=== PATIENT | female | born 1995 | race African-American/Black ===

== ENCOUNTER 2021-01-20 12:22 | Inpatient (IN) ==
[2021-01-20 14:12] LABS: ABS Basophils 0.1 10^3/ul (0-0.2); ABS Lymphocytes 2.4 10^3/ul (1.0-4.8); ABS Monocytes 0.8 10^3/ul (0-0.8); ABS Neutrophils 6.1 10^3/ul (1.5-7.7); Eosinophil % 0.5 %; Hematocrit 36 % (35-47); Hemoglobin 11.6 g/dL (12.0-16.0); Lymphocyte % 25.2 %; Mean Corpuscular HGB Conc 33 g/dL (31-36); Mean Corpuscular Hemoglobin 27 pg (27-31); Mean Corpuscular Volume 82 fL (80-97); Mean Platelet Volume 7.1 fL (7.4-10.4); Nucleated Red Blood Cells % 0.1; Platelet Count 522 10^3/uL (150-450); Red Blood Count 4.37 10^6 /uL (3.70-4.87); Red Cell Distribution Width 17 % (10-15); White Blood Count 9.4 10^3/uL (3.5-10.8)
[2021-01-20 14:26] LABS: Urine Benzodiazepine Screen None Detected (None Detect); Urine Cannabinoids Screen None Detected (None Detect); Urine Opiates Screen None Detected (None Detect)
[2021-01-20 14:30] LABS: Urine Appearance Cloudy; Urine Bilirubin Negative (Negative); Urine Blood 1+ (Negative); Urine Color Yellow; Urine Glucose Negative (Negative); Urine Ketones Negative (Negative); Urine Nitrite Negative (Negative); Urine Protein Negative (Negative); Urine Specific Gravity 1.024 (1.002-1.030); Urine Urobilinogen Negative (Negative)
[2021-01-20 14:40] LABS: ALT 10 U/L (7-52); AST 15 U/L (13-39); Albumin 4.1 g/dL (3.2-5.2); Albumin/Globulin Ratio 0.9 (1-3); Alkaline Phosphatase 83 U/L (35-149); Anion Gap 8 mmol/L (2-11); Blood Urea Nitrogen 10 mg/dL (6-24); CO2 Carbon Dioxide 23 mmol/L (22-32); Calcium 9.5 mg/dL (8.6-10.3); Chloride 104 mmol/L (101-111); Globulin 4.7 g/dL (2-4); Glucose 79 mg/dL (70-100); Potassium 3.6 mmol/L (3.5-5.0); Sodium 135 mmol/L (135-145); Total Protein 8.8 g/dL (6.4-8.9)
[2021-01-20 14:52] LABS: Urine Bacteria Absent (Absent); Urine Red Blood Cell 2+(6-10/hpf) (Absent); Urine Squamous Epithelial Cell Present (Absent); Urine White Blood Cell Trace(0-5/hpf) (Absent)
[2021-01-20 14:56] LABS: Alcohol, S < 13 mg/dL (<13); Salicylate < 2.50 mg/dL (<30)
[2021-01-20 15:04] LABS: TSH Ultra Thyroid Stim Horm 2.01 mcIU/mL (0.34-5.60)
[2021-01-20 15:16] LABS: Acetaminophen < 15 mcg/mL
[2021-01-21 06:05] LABS: Rapid COVID-19 Molecular Undetected (Undetected)
[2021-01-21] MEDS ORDERED: Al Hydrox/Mg Hydrox/Simet LIQ 30 ML UDC PO PRN (07:51)
[2021-01-21] MEDS: Vitamin THERAPEUTIC TAB PO SCH (08:29)
[2021-01-21 16:34] LABS: HCG Pregnancy < 0.60 mIU/mL
[2021-01-22 07:41] LABS: HDL Cholesterol 35.3 mg/dL
[2021-01-22] MEDS ORDERED: Flu vaccine *QUAD* 2021-22* 0.5 ML SYRINGE IM ONE (08:00)
[2021-01-22] MEDS: Vitamin THERAPEUTIC TAB PO SCH (08:50)
[2021-01-23] MEDS: Vitamin THERAPEUTIC TAB PO SCH (07:52)
[2021-01-24] MEDS: Vitamin THERAPEUTIC TAB PO SCH (08:48)
[2021-01-25] MEDS: Vitamin THERAPEUTIC TAB PO SCH (09:10)
[2021-01-26] MEDS: Vitamin THERAPEUTIC TAB PO SCH (09:11)
[2021-01-27] MEDS: Vitamin THERAPEUTIC TAB PO SCH (09:27)
[2021-01-28] MEDS: Vitamin THERAPEUTIC TAB PO SCH (09:36)
[2021-01-28 10:44] VITALS: BP 128/77
== END 2021-01-28 12:35 | disposition home or self-care (01) | DRG 885 ==
LOC: ED 12:22 → BSU 01-21 06:18
PROVIDERS: ADMIT Psychiatry & Neurology Psychiatry; ATTEND Psychiatry & Neurology Psychiatry